=== PATIENT | female | born 1990 | race Asian ===

== ENCOUNTER 2017-09-21 23:59 | Emergency (ER) | payer OTHER, SELFPAY ==
[2017-09-22 01:00] VITALS: BP 118/72; PULSE 80; RESP 18; TEMP 36.4; O2SAT 98; BMI 21.4
[2017-09-22 01:19] LABS: Appearance Urine UA CLEAR; Bilirubin Urine UA NEGATIVE (NEGATIVE); Color Urine UA YELLOW; Glucose Urine UA NEGATIVE (Normal); Ketones Urine UA NEGATIVE (NEGATIVE); Leukocyte Esterase Urine UA NEGATIVE (NEGATIVE); Nitrite Urine UA Negative (Negative); Occult Blood Urine UA 2+ (Negative); Protein Urine UA NEGATIVE (Negative); Specific Gravity Urine UA <=1.005 (1.000-1.035); Urobilinogen Urine UA 0.2 E.U./dL (0.2); pH Urine UA 6.5 (4.5-8.0)
[2017-09-22 01:28] LABS: Bacteria Urine Moderate (10-30); Culture Indicated Urine Specimen Cultured; RBC Urine 1-5/HPF (0-5/HPF); Squamous Epithelial Cell Urine 0-1 /HPF; WBC Urine 5-10/HPF (0-5/HPF)
--- NOTE | 2017-09-22 02:12 | ED_ITS ---
HPI - Female Genitourinary General Chief complaint: Urogenital-Female Stated complaint: thinks she has a uti Time Seen by Provider: 09/22/17 02:02 Source: patient Mode of arrival: ambulatory Limitations: no limitations History of Present Illness HPI Narrative: patient is a 27-year-old female who presents with painful urination which just started this evening. She has some mild suprapubic pain no flank pain no fever. he does have a history of UTIs. She was last treated for it 2 years ago. She denies any vaginal discharge or bleeding. Related Data Previous Rx's Medication Instructions Recorded sulfamethoxazole-trimethoprim 1 tab PO BID #10 tab 01/30/16 sulfamethoxazole-trimethoprim 1 tab PO BID 5 Days #10 tab 09/22/17 [Bactrim DS] Allergies Allergy/AdvReac Type Severity Reaction Status Date / Time No Known Drug Allergies Allergy Verified 09/22/17 01:05 Review of Systems Review of Systems GENERAL: Denies chills,fever HEENT: Denies throat pain RESPIRATORY: Denies dyspnea, cough, wheezing CARDIOVASCULAR: Denies chest pain, palpitations GASTROINTESTINAL: Denies nausea, vomiting : see HPI MUSCULOSKELETAL: Denies extremity pain, injury SKIN: No rash, no laceration, no pruritus NEUROLOGIC: Denies weakness, dizziness, headache, numbness 8 point review of systems is negative except for those stated above and HPI [facility] Social History Smoking Status: Never smoker Exam Initial Vital Signs Initial Vital Signs: Vital Signs Temperature 97.6 F 09/22/17 01:00 Pulse Rate 80 09/22/17 01:00 Respiratory Rate 18 09/22/17 01:00 Blood Pressure 118/72 09/22/17 01:00 Pulse Oximetry 98 09/22/17 01:00 GENERAL: Well-appearing, well-nourished and in no acute distress. CARDIOVASCULAR: regular rate and rhythm RESPIRATORY: No respiratory distress, Clear bilaterally ABDOMEN: Soft, mild suprapubic tenderness, no guarding or rebound : No CVA tenderness EXTREMITIES: Normal range of motion, no clubbing or edema. Neurovascularly intact NEUROLOGICAL: Cranial nerves II through XII grossly intact. Normal gait and speech. SKIN: Warm, dry, no petechiae, no rashes or lesions. Course Orders Ordered: ED Orders 09/22/17 01:15 Urinalysis and Microscopic Stat Urine Culture Stat 09/22/17 01:16 Test Urine Stat Discontinued Medications Trimethoprim/Sulfamethoxazole (Bactrim Ds Prepack) 1 bottle MIS SEEINSTR ONE Stop: 09/22/17 02:07 Last Admin: 09/22/17 02:38 Dose: 1 bottle Vital Signs - 8 hr 09/22/17 01:00 09/22/17 02:49 Temperature 97.6 F 98.2 F Pulse Rate 80 80 Respiratory Rate 18 18 Blood Pressure 118/72 115/70 Pulse Oximetry 98 98 MDM - Female Genitourinary Lab Data Attestation: I reviewed the patient's lab results. Lab Results 09/22/17 09/22/17 Range/Units 01:15 01:16 Urine Color Yellow Urine Appearance Clear Urine pH 6.5 (4.5-8.0) Ur Specific [place] <=1.005 (1.000-1.035) Urine Protein Negative (Negative) Urine Glucose (UA) Negative (Normal) g/dL Urine Ketones Negative (NEGATIVE) Urine Occult Blood 2+ H (Negative) Urine Nitrate Negative (Negative) Urine Bilirubin Negative (NEGATIVE) Urine Urobilinogen 0.2 (0.2) E.U./dL Ur Leukocyte Esterase Negative (NEGATIVE) Urine RBC 1-5/hpf (0-5/HPF) Urine WBC 5-10/hpf H (0-5/HPF) Ur Squamous Epith Cells 0-1 /hpf Urine Bacteria Moderate (10-30) H (None) Ur Culture Indicated? Specimen cultured Micro UA Comment Not Reportable Urine Test Negative (Negative) Discharge Plan Departure Patient Disposition: Home, Self-Care Clinical Impression: UTI (urinary tract infection) Discharge Date/Time: 09/22/17 02:49 Interventions: ED Discharge Assessment Last Done: 09/22/17 02:49 Instructions: DI for Urinary Tract Infection (UTI) Activity Restrictions/Additional Instructions: *You have been diagnosed with UTI *What to do: *Continue to take medications as directed - Bactrim 1 pill twice a day for 5 days *Follow up with your primary care provider in 2-3 days *Return to ER if you should have any new, worsening or concerning symptoms Prescriptions: New sulfamethoxazole-trimethoprim [Bactrim DS] 800-160 mg tablet 1 tab PO BID 5 Days Qty: 10 RF: 0 No Action sulfamethoxazole-trimethoprim 800 MG/160 MG tablet 1 tab PO BID Qty: 10 RF: 0 Referrals: [facility] [Provider Group]
[2017-09-22 02:20] LABS: Pregnancy Test Urine Negative (Negative)
[2017-09-22] MEDS: SULFA/TRIMETH 800/160 PREPACK 1 BOTTLE MISC (02:38)
[2017-09-22 02:49] VITALS: BP 115/70; PULSE 80; RESP 18; TEMP 36.8; O2SAT 98
== END 2017-09-22 02:49 | disposition home or self-care (01) ==
PROVIDERS: Emergency Provider Emergency Medicine
DX: N39.0 Urinary tract infection, site not specified (principal)
CPT/HCPCS: 81001; 81025; 87077; 87086; 87186; 99282; 99283